=== PATIENT | female | born 1940 | race African-American/Black ===

== ENCOUNTER 2017-06-25 12:23 | Day surgery (SDC) | payer MEDICARE, BC ==
[~2017-06-25] VITALS: Ht 175.3 cm; Wt 59.0 kg
[2017-06-25] VITALS (11 sets, daily range): BP systolic 117–187; BP diastolic 68–89
[2017-06-25] MEDS ORDERED: Tetracaine 0.5% Opth 4ml Soln LEFT EYE ONE (12:45)
--- NOTE | 2017-06-25 13:03 | Emergency Room Report ---
History of Present Illness General Chief Complaint: General Complaint Source: Patient, EMS Present Illness HPI 77-year-old female with history of cataracts presenting to the emergency room with blurry left and right vision. Patient states that this has been gradually for very long time. She came from the intake counselor office Dr. Gilbert, patient is scheduled to have cataract surgery on the left eye this afternoon. Patient currently complaining of chronic left eye blurry vision. Denies any headache nausea vomiting fever chills. Otherwise healthy Allergies: Coded Allergies: No Known Allergies (Unverified , 06/25/17) Patient History Past Medical History: see triage record Past Surgical History: none Pertinent Family History: none Reviewed Nursing Documentation: PMH: Agreed, PSxH: Agreed Nursing Documentation-PMH Past Medical History: No History, Except For Hx Cerebrovascular Accident: No - CATARACT, GLAUCOMA Review of Systems All Other Systems: negative except mentioned in HPI Physical Exam Vital Signs Date Time Temp Pulse Resp B/P (MAP) Pulse Ox O2 Delivery O2 Flow Rate FiO2 06/25/17 12:28 97.3 79 20 162/83 99 Room Air Sp02 EP Interpretation: reviewed, normal General Appearance: normal inspection, well appearing, no apparent distress, alert, GCS 15, non-toxic Head: normocephalic, atraumatic Eyes: bilateral eye PERRL, bilateral eye EOMI, bilateral eye other - Bilateral cloudy cornea bilateral eyes were some left. Intraocular pressure left eye 60 right eye 60 ENT: normal ENT inspection, normal pharynx, normal voice, moist mucus membranes Neck: normal inspection, full range of motion, supple Respiratory: normal inspection, lungs clear, normal breath sounds, no respiratory distress, no retraction, no wheezing, speaking full sentences, chest symmetrical Cardiovascular #1: normal inspection, regular rate, rhythm, no edema, normal capillary refill Cardiovascular #2: 2+ radial (R), 2+ radial (L) Gastrointestinal: normal inspection, non tender, soft, non-distended, no guarding Musculoskeletal: normal inspection, back normal, normal range of motion, non- tender Neurologic: normal inspection, alert, oriented x3, responsive, motor strength/ tone normal, sensory intact, normal gait, speech normal Psychiatric: normal inspection, judgement/insight normal, memory normal Skin: normal inspection, normal color, no rash, warm/dry, well hydrated, normal turgor Medical Decision Making Diagnostic Impression: Primary Impression: Cataracts, bilateral ER Course 77-year-old female with bilateral blurry vision Will get surgery this afternoon DDX: Cataracts Plan: Obtain labs ER course: Patient has been monitored during ED stay, HD stable d/w Dr Gilbert from ophtho, will administer meds ~15 min prior to surgery at 515. surgery at 530. Disposition: Patient is to have same day surgery Please note that this Emergency Department Report was dictated using [employer] worker technology software, occasionally this can lead to erroneous entry secondary to interpretation by the dictation equipment. EKG Diagnostic Results EP Interpretation: Yes Rate: normal Rhythm: NSR ST Segments: No acute changes ASA given to patient: No Rhythm Strip EP Interpretation: Yes Rate: 74 Rhythm: NSR, no PVCs, no ectopy Signed out patient to Dr Rowe 77 yo F to get ophtho surgery L eye at 530pm please administer meds at [address] Gilbert pending remaining pre op labs Last Vital Signs Date Time Temp Pulse Resp B/P (MAP) Pulse Ox O2 Delivery O2 Flow Rate FiO2 06/25/17 12:28 97.3 79 20 162/83 99 Room Air Disposition: HOME, SELF-CARE Condition: Improved Mayur Oconnell M.D. Jun 25, 2017 13:03
[2017-06-25] MEDS ORDERED: Vigamox Opth Soln 3ml LEFT EYE SCH (13:15)
[2017-06-25] MEDS ORDERED: Phenylephrine 2.5% Op 2ml Soln LEFT EYE ONE (13:15)
[2017-06-25] MEDS ORDERED: Flurbiprofen 0.03% Opth Sol 2.5ml LEFT EYE ONE (13:15)
[2017-06-25] MEDS ORDERED: Pred Forte 1% Opth Susp 1ml LEFT EYE ONE (13:15)
[2017-06-25] MEDS ORDERED: BSS 500ml btl ONE (14:29)
[2017-06-25] MEDS ORDERED: Dexamethasone 4mg/ml vial ONE (14:29)
[2017-06-25] MEDS ORDERED: Maxitrol Opth Oint 3.5gm ONE (14:29)
[2017-06-25] MEDS ORDERED: BSS 15ml BTL ONE (14:30)
[2017-06-25] MEDS ORDERED: Sodium Hyaluronate 10 mg/ml 0.85ml ONE (14:30)
[2017-06-25] MEDS ORDERED: Povidone-Iodine 5% opth solution ONE (14:30)
[2017-06-25] MEDS ORDERED: EPINEPHrine 1mg/1ml Amp ONE (14:30)
[2017-06-25] MEDS ORDERED: Lidocaine 2% MPF 5ml Vial INJ ONE (14:32)
[2017-06-25] MEDS ORDERED: Bupivacaine 0.75% 30ml vial INJ ONE (14:32)
--- NOTE | 2017-06-25 14:55 | Pre-Procedure Note/Attestation ---
Pre-Procedure Note/Attestation Complete Prior to Procedure Planned Procedure: left Procedure Narrative: PPV, removal of retained lens material Left eye Indications for Procedure Pre-Operative Diagnosis: Retained lens material after cataract surgery L eye Attestation I attest that I discussed the nature of the procedure; its benefits; risks and complications; and alternatives (and the risks and benefits of such alternatives ), prior to the procedure, with the patient (or the patient's legal visitor services representative). I attest that, if there was a reasonable possibility of needing a blood transfusion, the patient (or the patient's legal visitor services representative) was given the [facility] standardized written summary, pursuant to the Haresh Reginaldo Blood Safety Act ([place] Health and Safety Code # 1645, as amended). I attest that I re-evaluated the patient just prior to the surgery and that there has been no change in the patient's H&P, except as documented below: SHELTON ACUNA Jun 25, 2017 14:55
[2017-06-25 15:16] LABS: BASOPHILS % (AUTO) 1.4 % (0.0-2.0); EOSINOPHILS % (AUTO) 2.9 % (0.0-3.0); MEAN CORPUSCULAR HEMOGLOBIN 30.7 PG (27.0-31.0); MEAN CORPUSCULAR HGB CONC 32.6 G/DL (32.0-36.0); MEAN CORPUSCULAR VOLUME 94 FL (80-99); MEAN PLATELET VOLUME 6.3 FL (6.5-10.1); MONOCYTES % (AUTO) 6.7 % (1.0-10.0); NEUTROPHILS % (AUTO) 55.1 % (45.0-75.0); PLATELET COUNT 228 K/UL (150-450); RED BLOOD COUNT 4.67 M/UL (4.20-5.40); WHITE BLOOD COUNT 6.1 K/UL (4.8-10.8)
[2017-06-25] MEDS ORDERED: Propofol 200mg/20ml IV ONE (15:17)
[2017-06-25] MEDS ORDERED: Sterile Water Irrig 1000ml IRRIG ONE (15:30)
[2017-06-25] MEDS ORDERED: fentaNYL 100 mcg/2 mL IV ONE (15:30)
[2017-06-25] MEDS ORDERED: NS Irrig 1000ml ONE (15:30)
[2017-06-25] MEDS ORDERED: Midazolam 2mg/2ml Inj ONE (15:30)
--- NOTE | 2017-06-25 15:32 | Anethesia Preoperative Eval ---
Anesthesia Pre-op PMH/ROS General Date of Evaluation: Jun 25, 2017 Time of Evaluation: 15:31 Anesthesiologist: Mikki ASA Score: ASA 3 Mallampati Score Class I : Soft palate, uvula, fauces, pillars visible Class II: Soft palate, uvula, fauces visible Class III: Soft palate, base of uvula visible Class IV: Only hard plate visible Mallampati Classification: Class II Surgeon: Ofelia Diagnosis: L eye retained lens Surgical Procedure: PPV removal of retained IOL Anesthesia History: none Family History: no anesthesia problems Allergies: Coded Allergies: No Known Allergies (Unverified , 06/25/17) Medications: see eMAR Past Medical History Cardiovascular: Reports: HTN, Denies: CAD, MA, valve dz, arrhythmia, other Pulmonary: Denies: asthma, COPD, TAMMY, other Gastrointestinal/Genitourinary: Reports: GERD, Denies: CRI, ESRD, other Neurologic/Psychiatric: Reports: dementia - mild, Denies: CVA, depression/anxiety, TIA, other Endocrine: Reports: hypothyroidism, Denies: DM, steroids, other HEENT: Reports: cataract (L), glaucoma, Denies: cataract (R), CRAIG (L), CRAIG (R), other Hematology/Immune: Reports: anemia - mild, Denies: DVT, bleeding disorder, other Musculoskeletal/Integumentary: Reports: DJD PMH Narrative: as above PSxH Narrative: See H&P Anesthesia Pre-op Phys. Exam Physician Exam Last Vital Signs Date Time Temp Pulse Resp B/P (MAP) Pulse Ox O2 Delivery O2 Flow Rate FiO2 06/25/17 12:28 97.3 79 20 162/83 99 Room Air Constitutional: NAD Neurologic: CN 2-12 intact Cardiovascular: RRR, no M/R/G Respiratory: CTA Gastrointestinal: S/NT/ND Airway Exam Mallampati Score: Class II MO: limited Neck: stiff ROM: limited Teeth: missing Dentures: upper, lower Anesthesia Pre-op A/P Labs Hematology Test 06/25/17 14:40 White Blood Count 6.1 K/UL (4.8-10.8) Red Blood Count 4.67 M/UL (4.20-5.40) Hemoglobin 14.3 G/DL (12.0-16.0) Hematocrit 44.0 % (37.0-47.0) Mean Corpuscular Volume 94 FL (80-99) Mean Corpuscular Hemoglobin 30.7 PG (27.0-31.0) Mean Corpuscular Hemoglobin Concent 32.6 G/DL (32.0-36.0) Red Cell Distribution Width 13.0 % (11.6-14.8) Platelet Count 228 K/UL (150-450) Mean Platelet Volume 6.3 FL (6.5-10.1) L Neutrophils (%) (Auto) 55.1 % (45.0-75.0) Lymphocytes (%) (Auto) 34.0 % (20.0-45.0) Monocytes (%) (Auto) 6.7 % (1.0-10.0) Eosinophils (%) (Auto) 2.9 % (0.0-3.0) Basophils (%) (Auto) 1.4 % (0.0-2.0) Coagulation Test 06/25/17 14:40 Prothrombin Time Pending Prothromb Time International Ratio Pending Activated Partial Thromboplast Time Pending Chemistry Test 06/25/17 14:40 Sodium Level Pending Potassium Level Pending Chloride Level Pending Carbon Dioxide Level Pending Blood Urea Nitrogen Pending Creatinine Pending Estimat Glomerular Filtration Rate Pending Glucose Level Pending Calcium Level Pending Total Bilirubin Pending Aspartate Amino Transf (AST/SGOT) Pending Alanine Aminotransferase (ALT/SGPT) Pending Alkaline Phosphatase Pending Total Protein Pending Albumin Pending Globulin Pending Studies Pre-op Studies: EKG - NSR Risk Assessment & Plan Assessment: ASA 3 Plan: GA with LMA surgeon request Status Change Before Surgery: No Pre-Antibiotics Drug: none NENA SAWYER M.D. Jun 25, 2017 15:32
[2017-06-25 15:36] LABS: ALANINE AMINOTRANSFERASE 15 U/L (12-78); ANION GAP 10 (5-15); ASPARTATE AMINO TRANSFERASE 21 U/L (15-37); CALCIUM 9.8 MG/DL (8.5-10.1); CARBON DIOXIDE 26 MMOL/L (21-32); CHLORIDE 104 MMOL/L (98-107); CREATININE 1.3 MG/DL (0.55-1.30); POTASSIUM 2.9 MMOL/L (3.5-5.1); SODIUM 140 MMOL/L (136-145)
[2017-06-25 15:43] LABS: INR 1.1 (0.9-1.1); PROTHROMBIN TIME 11.4 SEC (9.30-11.50)
[2017-06-25] MEDS ORDERED: fentaNYL 100 mcg/2 mL IV PRN (16:00)
[2017-06-25] MEDS ORDERED: Kenalog-40 1ml Vial ONE (16:03)
[2017-06-25] MEDS ORDERED: Kenalog-10 5ml Inj ONE (16:03)
[2017-06-25] MEDS ORDERED: acetaZOLAMIDE 500mg Inj ONE (16:15)
[2017-06-25] MEDS ORDERED: Timolol 0.5% Op Soln 2.5ml ONE (16:18)
--- NOTE | 2017-06-25 16:26 | Brief Operative Note ---
Immediate Post Operative Note Operative Note Chief Complaint: Blurred vision Pre-op Diagnosis: Retained lens material after cataract surgery L eye Procedure: PPV, removal of retained lens material Left eye Post-op Diagnosis: same as pre-op Surgeon: sumanth Yard Attendant: digna Anesthesiologist: Mikki Anesthesia: general Specimen: none Complications: none Condition: stable Fluids: none Estimated Blood Loss: none Drains: none Implant(s) used?: No SHELTON ACUNA Jun 25, 2017 16:26
--- NOTE | 2017-06-25 16:36 | Immediate Post-Op Evaluation ---
Immediate Post-Op Evalulation Immediate Post-Op Evalulation Procedure: L eye PPV removal of retained lense fragments Date of Evaluation: Jun 25, 2017 Time of Evaluation: 16:35 IV Fluids: 300 Blood Products: none Estimated Blood Loss: min Urinary Output: none Blood Pressure Systolic: 164 Blood Pressure Diastolic: 78 Pulse Rate: 64 Respiratory Rate: 20 O2 Sat by Pulse Oximetry: 99 Temperature (Fahrenheit): 97.6 Pain Score (1-10): 2 Nausea: No Vomiting: No Complications none Patient Status: reacts, patent, none Hydration Status: adequate NENA SAWYER M.D. Jun 25, 2017 16:36
--- NOTE | 2017-06-25 16:38 | 48 Hour Post Anesthesia Eval ---
Post Anesthesia Evaluation Procedure: L eye PPV removal of retained lense fragments Date of Evaluation: Jun 25, 2017 Time of Evaluation: 17:05 Blood Pressure Systolic: 162 0: 58 Pulse Rate: 65 Respiratory Rate: 20 Temperature (Fahrenheit): 97.6 O2 Sat by Pulse Oximetry: 98 Airway: patent Nausea: No Vomiting: No Pain Intensity: 2 Hydration Status: adequate Cardiopulmonary Status: stable Mental Status/LOC: patient returned to baseline Follow-up Care/Observations: n/a Post-Anesthesia Complications: none Follow-up care needed: ready to discharge NENA SAWYER M.D. Jun 25, 2017 16:37
--- NOTE | 2017-06-25 17:00 | Pre-op HX & Phy Repo 2 SIG ---
DATE OF ADMISSION: 06/25/2017 DATE OF SURGERY: 06/25/2017 PREOPERATIVE DIAGNOSIS: Retained lens fragments, left eye. The surgery to be performed is pars plana vitrectomy with fragmentation and removal of retained lens fragments, left eye. BRIEF NOTE: This is the first [place] admission for this patient, who is a very nice 77-year-old lady visiting long-term from [place], [place] who underwent cataract surgery in her left eye on 06/11/2017. Apparently the nuclear material was removed, but some cortex was left behind. A sulcus fixated posterior chamber lens was placed. She did well for a time, but has developed uncontrollable pressure issues and is admitted for definitive vitrectomy with removal of retained lens material. PAST MEDICAL HISTORY: Apparently unremarkable according to the patient. She is nondiabetic. ALLERGIES: She has no known allergies. SOCIAL HISTORY: She does not smoke and does not drink. PHYSICAL EXAMINATION: Best vision at the time of admission was 20/70, -2 in the right eye and hand motions in the left with pressures of 19 and 43. The anterior segment on the right was quiet except for significant nuclear and cortical cataract. The left eye showed 1+ hyperemia of the conjunctiva. There was 2+ corneal epithelial edema. The cataract wound appeared sutured shut. Fluffy cortical debris was seen in the anterior and posterior chambers. A sulcus fixated intra-ocular lens appeared to be in reasonable position. The fundus could not be seen clearly on the left secondary to significant cortical material and hazy cornea. On the right eye, there was a moderate nuclear cataract. Funduscopic examination of the right eye showed normal-appearing optic nerve and retinal vasculature. ASSESSMENT: Retained lens material, left eye, with uncontrollable intraocular pressure. PLAN: The plan is to perform pars plana vitrectomy with fragmentation and removal of the retained lens material. The risks and benefits of surgery were gone over with the patient with the potential for infection, hemorrhage, inability to fully control the glaucoma, retinal detachment, remote possibility of loss of the eye. The risk of anesthesia was discussed. The patient understands and consents to the surgery, which will be performed this afternoon. Last Gilbert M.D. DR: AMIE JOB#: [id number] CC:
[2017-06-25] MEDS ORDERED: Cyclopentolate 1% Opth Sol 2ml LEFT EYE ONE (18:00)
[2017-06-25] MEDS ORDERED: acetaZOLAMIDE 500mg Sequel ORAL ONE (18:00)
[2017-06-25] MEDS ORDERED: Norco 5mg/325mg tab ORAL PRN (23:01)
--- NOTE | 2017-06-28 08:32 | Operative Note - Dictated ---
DATE OF OPERATION: 06/25/2017 PREOPERATIVE DIAGNOSIS: Retained lens material, left eye with elevated pressure. POSTOPERATIVE DIAGNOSIS: Retained lens material, left eye with elevated pressure. PROCEDURES PERFORMED: 1. Pars plana vitrectomy. 2. Removal of retained lens material. SURGEON: Last Gilbert M.D. ANGULAR JS DEVELOPER SURGEON: None. ANESTHESIA: LMA general. ANESTHESIOLOGIST: Fadi Kaye M.D. JUSTIFICATION FOR SURGERY: This 77-year-old lady developed poor vision in the left eye after cataract surgery done roughly 10 days ago. She was found to have retained lens material and uncontrollable pressure elevation. BRIEF NOTE: The patient was brought to the operating room, placed on operating room table in supine position. After a time-out was performed and agreed upon by the staff, general LMA anesthesia was induced by Dr. Kaye. Retrobulbar and Van Lint blocks were then given in the standard way to limit the need for postoperative anesthetic. She was then prepped and draped in normal manner. A lid speculum was inserted into the left eye. Using a 23-gauge trocar system, cannulas were placed in all except the inferonasal quadrant. Infusion secured inferotemporally. Vitrectomy was begun posterior to the lens implant. All adherent vitreous was removed followed by gentle suction and removal of residual cortex. The lens implant was noted to be well fixated in the sulcus with an adequate sized anterior capsule. The anterior chamber wound was nicely closed with 10-0 nylon suture and there was no wound leak. The vitrectomy was continued further peripherally releasing a small amount of lens material into the posterior pole. None of the material was noted to be nuclear in nature and thus all of the material was easily removed with the vitreous cutter. It should be noted that the optic nerve was examined and showed a significant degree of pallor and cupping. Scleral depression was done and no peripheral breaks, tears, or detachments were seen. The instruments were then removed from the eye and the superior sclerotomies were each closed with a single suture of 8-0 Vicryl. The eye was left formed and the infusion cannula was also removed and this sclerotomy subsequently closed with the same suture material. Subconjunctival Decadron and gentamicin were then injected and Maxitrol, prednisolone, and atropine drops were instilled followed by Maxitrol ointment. The eye was patched and shielded. The patient taken to recovery in excellent condition. It should be noted that no new pathology was found other than the significantly cupped optic nerve. Last Gilbert M.D. DR: AMIE JOB#: [id number] CC: ESAU
--- NOTE | 2017-07-06 08:35 | Cardiology Report ---
APPROVED REPORT EKG Measurement Heart [id number] Sinus rhythm with premature atrial complexes Anterior infarct, age undetermined Abnormal ECG
== END 2017-06-25 18:30 | disposition home or self-care (01) ==
LOC: EMR 14:00 → SUR 14:50
DX: H59.022 Cataract (lens) fragments in eye following cataract surgery, left eye (principal); H53.8 Other visual disturbances; H26.9 Unspecified cataract; I10 Essential (primary) hypertension; K21.9 Gastro-esophageal reflux disease without esophagitis; F03.90 Unspecified dementia, unspecified severity, without behavioral disturbance, psychotic disturbance, mood disturbance, and anxiety; E03.9 Hypothyroidism, unspecified; M19.90 Unspecified osteoarthritis, unspecified site
CPT/HCPCS: 36415; 66852; 80053; 85025; 85610; 85730; 93005; 99285; J0171; J1100; J1120; J2250; J2704; J3010; J3301; J3470; J3490; 94003; 94150